=== PATIENT | female | born 1985 | race Caucasian/White ===

== ENCOUNTER 2016-11-09 22:34 | Emergency (ER) | payer SELFPAY ==
[~2016-11-09] VITALS: Ht 170.2 cm; Wt 109.1 kg
[~2016-11-09 22:34] MED LIST: FLEXERIL 1010 MG/TAB PO; NORCO 325 MG-7.1 TAB PO
[2016-11-09 22:42] VITALS: TEMP 98.4
[2016-11-09] MEDS ORDERED: PROVENTIL0.09 MG/A1 IH (22:45)
[2016-11-10 00:08] LABS: INFLUENZA B NEGATIVE
[2016-11-10] MEDS ORDERED: PROAIR HFA0.09 MG/AC IH (00:15)
[2016-11-10] MEDS ORDERED: PREDNISONE20 MG PO (00:15)
[2016-11-10] MEDS ORDERED: TESSALON P100 MG/CAP PO (00:15)
[2016-11-10 00:32] VITALS: BP 121/60; PULSE 95
== END 2016-11-10 00:35 | disposition home or self-care (01) ==
LOC: COL.ER 22:34
PROVIDERS: Nurse Practitioner
DX: J20.9 Acute bronchitis, unspecified (principal); F17.210 Nicotine dependence, cigarettes, uncomplicated
CPT/HCPCS: J7512

== ENCOUNTER 2017-07-25 14:08 | Emergency (ER) | payer OTHER ==
[~2017-07-25] VITALS: Ht 170.2 cm; Wt 111.8 kg
[~2017-07-25 14:08] MED LIST changes: +PREDNISONE20 MG PO; +PROAIR HFA0.09 MG/AC IH; +PROVENTIL0.09 MG/A1 IH; +TESSALON P100 MG/CAP PO
[2017-07-25 14:11] VITALS: BP 131/82; PULSE 107; TEMP 98.4
[2017-07-25] MEDS ORDERED: MOTRIN 800800 MG/TAB PO (14:13)
[2017-07-25] MEDS ORDERED: CATAPRES 0.1MG0.1 MG PO (14:13)
== END 2017-07-25 17:01 | disposition home or self-care (01) ==
LOC: COL.ER 14:08
DX: G43.909 Migraine, unspecified, not intractable, without status migrainosus (principal); I10 Essential (primary) hypertension; J45.909 Unspecified asthma, uncomplicated
CPT/HCPCS: J1200; J1630; J1885; J2765; J7030

== ENCOUNTER 2017-12-06 18:10 | Emergency (ER) | payer OTHER ==
[~2017-12-06] VITALS: Ht 170.2 cm; Wt 111.4 kg
[~2017-12-06 18:10] MED LIST changes: +CATAPRES 0.1MG0.1 MG PO; +MOTRIN 800800 MG/TAB PO
[2017-12-06 18:11] VITALS: BP 133/82; TEMP 98.9
[2017-12-06] MEDS ORDERED: FLONASEALLERGY NS (19:18)
[2017-12-06] MEDS ORDERED: AMOXICILLIN 8751 TAB PO (19:18)
[2017-12-06 19:47] VITALS: PULSE 79
== END 2017-12-06 19:48 | disposition home or self-care (01) ==
LOC: COL.ER 18:10
DX: J01.90 Acute sinusitis, unspecified (principal); J45.909 Unspecified asthma, uncomplicated; F17.210 Nicotine dependence, cigarettes, uncomplicated; Z98.51 Tubal ligation status; Z98.890 Other specified postprocedural states